=== PATIENT | male | born 1965 | race Caucasian/White ===

== ENCOUNTER 2016-12-11 04:07 | Emergency (ER) | payer OTHER ==
--- NOTE | 2016-12-11 04:54 | EDPHY ---
H & P Stated Complaint: left flank pain HPI/ROS: HPI CHIEF COMPLAINT: Back pain, radiating down left leg HISTORY OF PRESENT ILLNESS: This patient very pleasant 50-year-old male he tells me he has significant past medical history for "being mentally disabled" he presents to the emergency room at 5 o'clock in the morning with complaint of lumbar back pain paravertebral left-sided that radiates down his left gluteus and across the anterior left thigh. It is worse when he walks and has positional changes he denies midline lumbar pain he denies trauma, denies saddle anesthesia, bowel or bladder continence. In fact patient tells me that he thinks he is severely constipated and having trouble having bowel movements. Tells me his stools are hard at times he sees blood in them. Denies fever, chest pain, shortness of breath, vomiting. He tells me sees at time of hard stool bright red blood. The main reason coming into the emergency room this evening is lumbar back pain left-sided paravertebral radiating down his left leg across the left thigh does not go below his knee. Denies fever. Past Medical History: "Mentally disabled" Past Surgical History: denies significant surgical history Social History: lives locally here [place], disabled Family History: noncontributory ROS REVIEW OF SYSTEMS: A comprehensive 10 point review of systems is otherwise negative aside from elements mentioned in the history of present illness. Exam Constitutional appears well, nontoxic no acute distress, triage nursing summary reviewed, vital signs reviewed, awake/alert. Eyes normal conjunctivae and sclera, EOMI, PERRLA. HENT normal inspection, atraumatic, moist mucus membranes, no epistaxis, neck supple/ no meningismus, no raccoon eyes. Respiratory clear to auscultation bilaterally, normal breath sounds, no respiratory distress, no wheezing. Cardiovascular rate normal, regular rhythm, no murmur, no edema, distal pulses normal. Gastrointestinal rectal exam good tone, brown stool, no blood, no palpable mass , no evidence of hemorrhoids, soft, non-tender, no rebound, no guarding, normal bowel sounds, no distension, no pulsatile mass. Genitourinary no CVA tenderness. Musculoskeletal no midline vertebral tenderness, full range of motion, no calf swelling, no tenderness of extremities, no meningismus, good pulses, neurovascularly intact. Skin pink, warm, & dry, no rash, skin atraumatic. Neurologic awake, alert and oriented x 3, AAOx3, moves all 4 extremities equally, motor intact, sensory intact, CN II-XII intact, normal cerebellar, normal vision, normal speech. this patient is good strength of his bilateral lower extremities 5/5 Psychiatric normal mood/affect. Heme/Lymph/Immune no lymphadenopathy. Differential Diagnosis: This includes but is not limited to in a particular order: sciatica, annular tear, compression fracture, nerve root compression, kidney stone, UTI Medical Decision Making: this patient had an x-ray of his lumbar spine to rule compression fracture significant malalignment, will check a urinalysis to make sure he does not have blood in his urine. His rectal exam is unremarkable no blood. Will send Hemoccult blood. Ibuprofen for pain control. Re-evaluation: ED x-ray lumbar spine: no evidence of acute compression fracture. There is scoliosis present. Image interpreted myself. 0604: Re-examination at this time the patient's urinalysis does not show any blood, rectal exam occult blood shows no blood. patient's pain is well controlled ibuprofen most likely sciatica. Lumbar spine x-ray shows no acute compression fracture. I do recommend he takes MiraLax for constipation ibuprofen for pain return to the emergency room if develops any worsening symptoms questions or concerns includes severe back pain, vomiting or fever. Source: Patient - Personal History Current Tetanus Diphtheria and Acellular Pertussis (TDAP): Yes - Medical/Surgical History Hx Asthma: No Hx Chronic Respiratory Disease: No Hx Diabetes: No Hx Cardiac Disease: No Hx Renal Disease: No Hx Cirrhosis: No Hx Alcoholism: No Hx HIV/AIDS: No Hx Splenectomy or Spleen Trauma: No Other PMH: none - Social History Smoking Status: Former smoker Constitutional: Initial Vital Signs Heart Rate 80 12/11/16 04:12 Respiratory Rate 20 12/11/16 04:12 Blood Pressure 142/98 H 12/11/16 04:12 O2 Sat (%) 94 12/11/16 04:12 O2 Delivery Mode Room Air Allergies/Adverse Reactions: amoxicillin [Amoxicillin] Allergy (Verified 05/06/14 19:32) Home Medications: Medication Instructions Recorded oxyCODONE/APAP 5/325 [Percocet 1 - 2 tab PO Q4-6PRN PRN #15 tab 01/23/15 5/325] Hydrocodone/APAP 5/325 [[place] 1 - 2 tab PO Q4-6PRN PRN #10 tab 01/27/16 5/325 (RX)] Ibuprofen [Motrin (*)] 800 mg PO Q6-8PRN #7 tab 12/11/16 Polyethylene Glycol 3350 [Miralax 17 gm PO DAILY #2 pkt 12/11/16 17 gm (*)] Medical Decision Making - Data Points Laboratory Results: 12/11/16 12/11/16 05:10 05:00 Urine Color YELLOW Urine Appearance CLEAR Urine pH 6.0 (5.0-7.5) Ur Specific [place] 1.027 (1.002-1.030) Urine Protein NEGATIVE (NEGATIVE) Urine Ketones TRACE H (NEGATIVE) Urine Blood NEGATIVE (NEGATIVE) Urine Nitrate NEGATIVE (NEGATIVE) Urine Bilirubin NEGATIVE (NEGATIVE) Urine Urobilinogen 2.0 H EU (0.2-1.0) Ur Leukocyte Esterase NEGATIVE (NEGATIVE) Urine Glucose NEGATIVE (NEGATIVE) Stool Occult Bld Scrn NEGATIVE (NEGATIVE) Medications Given: Discontinued Medications Ibuprofen (Motrin) 800 mg PO EDNOW ONE Stop: 12/11/16 05:04 Last Admin: 12/11/16 05:20 Dose: 800 mg Departure - Departure Disposition: Home, Routine, Self-Care Clinical Impression: Sciatica Qualifiers: Laterality: left Qualifier Code: (M54.32) Sciatica, left side Back pain Qualifiers: Back pain location: low back pain Chronicity: acute Back pain laterality: left Sciatica presence: with sciatica Sciatica laterality: sciatica of left side Qualifier Code: (M54.42) Lumbago with sciatica, left side Constipation Qualifiers: Constipation type: slow transit constipation Qualifier Code: (K59.01) Slow transit constipation Condition: Good Instructions: Low Back Strain (ED), Acute Low Back Pain (ED), Lumbar Radiculopathy (ED), Arthralgia (ED), Back Pain (ED), Sciatica (ED), Constipation (ED) Additional Instructions: 1. Return emergency room if develops worsening symptoms questions or concerns. Referrals: NONE *PRIMARY CARE P,. [Primary Care Provider] - As per Instructions Prescriptions: Polyethylene Glycol 3350 [Miralax 17 gm (*)] 17 gm PO DAILY #2 pkt Ibuprofen [Motrin (*)] 800 mg PO Q6-8PRN #7 tab
[2016-12-11] MEDS ORDERED: IBUPROFEN 200 MG TAB PO ONE (05:03)
[2016-12-11 05:25] LABS: COLOR YELLOW; LEUKOCYTE ESTERASE,URINE NEGATIVE (NEGATIVE); NITRITE,URINE NEGATIVE (NEGATIVE)
[2016-12-11 06:24] VITALS: BP 119/93; PULSE 66; RESP 16; TEMP 98.6; O2SAT 95
--- NOTE | 2016-12-11 09:18 | DX ---
Lumbar Spine, 2 views History: Pain Comparison: None Findings: There is a moderate lumbar levoscoliosis centered at L3. There is mild leftward listhesis o f L3 on top of L4 associated with lateral osteophytes. There are marginal anterior disk space osteoph ytes between L3 and L5. Disk spaces maintain normal height. There is degenerative vacuum phenomenon p resent at L5-S1. Mineralization is normal and there are no compression abnormalities. The SI joints l ook normal. Impression: Degenerative lumbar changes described above associated with a scoliosis.
== END 2016-12-11 06:23 | disposition home or self-care (01) ==
DX: M54.42 Lumbago with sciatica, left side (principal); K59.01 Slow transit constipation; Z87.891 Personal history of nicotine dependence

== ENCOUNTER 2016-12-11 10:12 | Emergency (ER) | payer OTHER ==
[2016-12-11 10:18] VITALS: RESP 16; O2SAT 95
--- NOTE | 2016-12-11 12:04 | EDPHY ---
H & P Stated Complaint: l flank pain/seen this morning Time Seen by Provider: 12/11/16 11:56 HPI/ROS: CHIEF COMPLAINT: Flank pain HISTORY OF PRESENT ILLNESS: The patient is a 50 year old male, presenting with left sided low back pain. The patient was evaluated here less than 12 hours ago ; presenting with 2 days of low back pain and bloody stool. Evaluation included occult neg stool and urinalysis with no hematuria. Xrays of lumbar spine unremarkable. He was discharged home with magnesium citrate for constipation. After drinking mag-citrate he had a bowel movement today. He continues to have low back pain. His pain is left sided and radiates into his left anterior thigh. His pain is worse with movement. He had similar low back pain last year that developed after skiing. He denies incontinence. No urinary complaints. No fever, chills, vomiting, diarrhea. No pain with defecation, no history of anal fissure or of hemorrhoids. No bowel or bladder dysfunction, no weakness in legs. REVIEW OF SYSTEMS: Aside from elements discussed in the HPI, a comprehensive 10-point review of systems was reviewed and is negative. PAST MEDICAL HISTORY: C-difficile after antibiotics. SOCIAL HISTORY: Marijuana use. VITAL SIGNS: Reviewed by me GENERAL: Well-developed, well-nourished, resting comfortably in no respiratory distress. HEENT: Atraumatic. Eyes: No icterus, no injection. Mouth: moist mucous membranes. No erythema or lesions. Neck: supple with no adenopathy. LUNGS: Clear to auscultation bilaterally, no wheezes, rhonchi or rales. CARDIAC: Regular rate and rhythm, no rubs, murmurs or gallops. ABDOMEN: Soft, nontender, nondistended, bowel sounds normal. BACK: Pain in lateral left flank, near SI joint, and extending along paraspinal muscles. No pain with internal/external rotation at hip. No midline tendernss to palpation. RECTAL: Brown stool, no melena, no fissues, hemorrhoid. EXTREMITIES: No trauma. No edema. Range of motion is normal throughout. NEURO: Alert and oriented, grossly nonfocal. SKIN: Warm and dry, no rash. PSYCHIATRIC: Normal mentation, no agitation. Portions of this note were transcribed by a medical genetics director. I personally performed a history, physical exam, medical decision making, and confirmed accuracy of information the transcribed note. Source: Patient - Personal History Current Tetanus/Diphtheria Vaccine: Yes - Medical/Surgical History Hx Asthma: No Hx Chronic Respiratory Disease: No Hx Diabetes: No Hx Cardiac Disease: No Hx Renal Disease: No Hx Cirrhosis: No Hx Alcoholism: No Hx HIV/AIDS: No Hx Splenectomy or Spleen Trauma: No Other PMH: none - Social History Smoking Status: Former smoker Constitutional: Initial Vital Signs Temperature (C) 36.4 C 12/11/16 10:14 Heart Rate 83 12/11/16 10:14 Respiratory Rate 16 12/11/16 10:14 Blood Pressure 157/106 H 12/11/16 10:14 O2 Sat (%) 95 12/11/16 10:14 O2 Delivery Mode Room Air Allergies/Adverse Reactions: amoxicillin [Amoxicillin] Allergy (Verified 12/11/16 10:13) Home Medications: Medication Instructions Recorded oxyCODONE/APAP 5/325 [Percocet 1 - 2 tab PO Q4-6PRN PRN #15 tab 01/23/15 5/325] Hydrocodone/APAP 5/325 [[place] 1 - 2 tab PO Q4-6PRN PRN #10 tab 01/27/16 5/325 (RX)] Hydrocodone/APAP 5/325 [[place] 1 tab PO Q6H PRN #10 tab 12/11/16 5/325 (RX)] Ibuprofen [Motrin (*)] 800 mg PO Q6-8PRN #7 tab 12/11/16 Polyethylene Glycol 3350 [Miralax 17 gm PO DAILY #2 pkt 12/11/16 17 gm (*)] methylPREDNISolone [Medrol Dose 4 mg PO DAILY #1 ea 12/11/16 [place]] oxyCODONE IR [Oxycodone Ir (*)] 5 mg PO Q6-8PRN PRN #10 tab 12/11/16 Medical Decision Making - Diagnostics Imaging: Study: CT of the abdomen/pelvis. Indication: Left flank pain. Results: Stenosis of lumbar spine, L3, L4. No diverticulitis. No stone. The study was read by the radiologist, Dr. Collins. I viewed the images myself on the PACS system. ED Course/Re-evaluation: 50 year old see about 12 hours ago in the ED. Presents complaining of ongoing left flank pain. Labs and CT abdomen/pelvis was ordered. Labs largely unremarkable. Urine with no hematuris. CT scan of abdomen demonstrates some constipation, no divertirticulitis, no evidence for kidney stones. Lumbar spinal stenosis noted. 1:45 pm: I discussed findings with the patient. CT shows no obstruction, no stone. He has lumbar stenosis. Feels comfortable being discharged home with plans for pain meds and follow up. Will also be given referral to GI for chronic bloating and pain. Differential Diagnosis: Differential diagnosis of the patient's flank pain was considered including but not limited to musculoskeletal causes, kidney stone, pyelonephritis, shingles, and intra-abdominal causes such as diverticulitis and appendicitis. - Data Points Laboratory Results: Laboratory Results 12/11/16 12:00 12/11/16 12:00 Departure - Departure Disposition: Home, Routine, Self-Care Clinical Impression: Lumbar stenosis, Low back pain Condition: Good Instructions: Acute Low Back Pain (ED) Additional Instructions: Mainstay of therapy is rest, ice, anti-inflammatories, pain medications, and muscle relaxants as much as possible. Apply ice for 20-30 minutes every 2-3 hours for the next 48 hours. After 48 hours, a heating pad or hot tub may feel better. Use ibuprofen 600 mg every 6-8 hours on a regular basis to provide pain relief and anti-inflammatory effects. Okay to use hydrocodone as needed for severe pain. Use Medrol dose pack as prescribed. Followup with the moving consultant as directed. Consider physical therapy or chiropractic followup. Return to the emergency department or seek care urgently if you have worsening pain, pain radiating into the legs, weakness, numbness or tingling, difficulties with bowel or bladder, or other concerns. Referrals: Jackson Shetty DO [Doctor of Osteopathy] - As per Instructions (Primary Care Physician referral) Ela Andrews MD [Medical Doctor] - As per Instructions ( Insurance Premium Auditor) Prescriptions: methylPREDNISolone [Medrol Dose [place]] 4 mg PO DAILY #1 ea Hydrocodone/APAP 5/325 [[place] 5/325 (RX)] 1 tab PO Q6H PRN #10 tab PRN Reason: Pain oxyCODONE IR [Oxycodone Ir (*)] 5 mg PO Q6-8PRN PRN #10 tab PRN Reason: pain Report Scribed for: Philly Carranza Report Scribed by: Fang Alvarado Date of Report: 12/11/16 Time of Report: 12:04
[2016-12-11 12:36] LABS: % IMMATURE GRANULYOCYTES 0.3 % (0.0-1.1); ABSOLUTE IMMATURE GRANULOCYTES 0.02 10^3/uL (0.00-0.10); ADD DIFF? NO; ADD MORPH? NO; ADD SCAN? NO; ATYPICAL LYMPHOCYTE FLAG 10 (0-99); FRAGMENT RBC FLAG 0 (0-99); HEMATOCRIT 47.6 % (40.0-51.0); HEMOGLOBIN 16.9 g/dL (13.7-17.5); LEFT SHIFT FLG 0 (0-99); LIPEMIA HEMOLYSIS FLAG 90 (0-99); MEAN CELL HEMOGLOBIN 31.2 pg (27.9-34.1); MEAN CELL HEMOGLOBIN CONCENTR. 35.5 g/dL (32.4-36.7); MEAN CELL VOLUME 87.8 fL (81.5-99.8); MEAN PLATELET VOLUME 10.1 fL (8.7-11.7); PLATELET CLUMPS FLAG 0 (0-99); PLATELET COUNT 223 10^3/uL (150-400); RED BLOOD CELL COUNT 5.42 10^6/uL (4.40-6.38); RED CELL DISTRIBUTION WIDTH 12.3 % (11.5-15.2)
[2016-12-11] MEDS ORDERED: IOPAMIDOL (ISOVUE-300) 100 ML BTL IV ONE (12:39)
[2016-12-11 12:59] LABS: CALCIUM 9.7 mg/dL (8.5-10.4); POTASSIUM 4.8 mEq/L (3.5-5.2); SODIUM 139 mEq/L (134-144)
[2016-12-11 13:32] LABS: ANION GAP 13 mEq/L (8-16); CARBON DIOXIDE 23 mEq/l (22-31); CHLORIDE 103 mEq/L (97-110); CREATININE 1.2 mg/dL (0.7-1.3); GLOMERULAR FILTRATION RATE > 60; GLUCOSE 93 mg/dL (70-100)
--- NOTE | 2016-12-11 13:35 | CT ---
CT Scan of the Abdomen and Pelvis (With Contrast) at 1254 hours History: Left flank pain. Technique: Axial computed tomographic images of the abdomen and pelvis were obtained with the unevent ful intravenous administration of 90 mL Isovue-300 contrast. No oral or rectal contrast, which limits the study. Dose reduction techniques were utilized. CT Abdomen Findings: Lung bases: Normal. Liver: Normal. Biliary system: No obstruction. Spleen: 1 cm probable benign splenic cyst on image 26 of series 3.. Pancreas: Normal. Adrenals: Normal. Kidneys: No obstruction or solid masses.. Abdominal Aorta: No aneurysm. No bowel obstruction, ascites, or significant retroperitoneal lymphadenopathy. CT Pelvis Findings: No evidence of diverticulitis. Prostate measures 5 x 4 cm with some calcification s. No evidence of appendicitis. No inflammatory changes involving the colon. A few sigmoid diverticul a without diverticulitis. No bowel obstruction. [id number] degenerative disk disease in the lumbar spine with disk bulge and facet arthropathy, most prominent at L3-L4, resulting in moderate stenosis at L3-L4 and [id number] bilateral neur al foraminal stenosis. Impression: 1. L3-L4: Moderate central canal stenosis and [id number] bilateral neural foraminal stenosis, s econdary to degenerative disk disease with disk bulge and facet arthropathy. 2. No CT evidence of appendicitis, abscess or bowel obstruction. 3. A few sigmoid diverticula without diverticulitis, colitis or bowel obstruction. 4. Probable benign splenic cyst measuring 1 cm. 5. No evidence for urinary tract obstruction, aortic aneurysm, or significant adenopathy. Findings and recommendations discussed with Emergency Department physician, Dr. Philly Carranza at 1320 hours today. Final report concurs with initial preliminary interpretation.
[2016-12-11 13:39] VITALS: BP 142/72; PULSE 85; TEMP 98.4
== END 2016-12-11 15:00 | disposition home or self-care (01) ==
DX: M48.06 Spinal stenosis, lumbar region (principal); Z87.891 Personal history of nicotine dependence
CPT/HCPCS: 74177; 99285; Q9967; 82947-QW

== ENCOUNTER 2016-12-16 07:11 | Emergency (ER) | payer OTHER ==
[2016-12-16 07:19] VITALS: RESP 16; TEMP 97.9
--- NOTE | 2016-12-16 07:31 | EDPHY ---
H & P Stated Complaint: low back pain, not enough meds . seen in ED for same on 12/11 Time Seen by Provider: 12/16/16 07:30 HPI/ROS: CHIEF COMPLAINT: Low back pain. HISTORY OF PRESENT ILLNESS: This patient is a 50 year old man presenting with ongoing low back pain, duration of approximately one week. The pain is aggravated by getting up after sitting or laying for a long period of time. It is moderate in severity. He has taken a Medrol dose pack, ibuprofen, and hydrocodone for pain relief. He received mild alleviation from the ibuprofen. Last took ibuprofen, 800mg, at 5am (3 hours ago). He denies radiation of pain or leg paresthesia. Denies bowel or bladder incontinence. Denies trauma or injury. He denies any acute change in the back pain, main complaint is difficulty managing the pain. The patient was seen for this complaint 12/11/16 in the ED. He also reported blood stools at that time. The patient attempted to schedule a colonoscopy after that visit, but was told he was not able to schedule it until he was 51 years old. Primary reason for todays presentation is ongoing discomfort. Requesting more meds and referral to orthopedics REVIEW OF SYSTEMS: Aside from elements discussed in the HPI, a comprehensive 10-point review of systems was reviewed and is negative, with exception of difficulty staying asleep at night. PAST MEDICAL HISTORY: C-difficile after antibiotics SOCIAL HISTORY: Marijuana use. VITAL SIGNS: Reviewed by me GENERAL: Well-developed, well-nourished, resting comfortably in no respiratory distress. HEENT: Atraumatic. Eyes: No icterus, no injection. Mouth: moist mucous membranes. No erythema or lesions. Neck: supple with no adenopathy. LUNGS: Clear to auscultation bilaterally, no wheezes, rhonchi or rales. CARDIAC: Regular rate and rhythm, no rubs, murmurs or gallops. ABDOMEN: Soft, nontender, nondistended, bowel sounds normal. BACK: Mild tenderness to the low back, on the level of L4-L5. No CVA tenderness. EXTREMITIES: No trauma. No edema. Range of motion is normal throughout. NEURO: Alert and oriented, Straight leg raise test is negative bilaterally. Hip flexion, knee extension, knee flexion, dorsiflexion and plantar flexion are 5/ 5 bilaterally. EHL 5 over 5. Sensation is intact to light touch throughout. 1+ ankle jerk bilaterally. Absent patellar reflexes bilaterally. SKIN: Warm and dry, no rash. PSYCHIATRIC: Normal mentation, no agitation. Portions of this note were transcribed by a biomedical engineering technician. I personally performed a history, physical exam, medical decision making, and confirmed accuracy of information the transcribed note. Source: Patient Exam Limitations: No limitations - Personal History Current Tetanus/Diphtheria Vaccine: Unsure Current Tetanus Diphtheria and Acellular Pertussis (TDAP): Unsure - Medical/Surgical History Hx Asthma: No Hx Chronic Respiratory Disease: No Hx Diabetes: No Hx Cardiac Disease: No Hx Renal Disease: No Hx Cirrhosis: No Hx Alcoholism: No Hx HIV/AIDS: No Hx Splenectomy or Spleen Trauma: No Other PMH: none - Social History Smoking Status: Former smoker Constitutional: Initial Vital Signs Temperature (C) 36.6 C 12/16/16 07:16 Heart Rate 76 12/16/16 07:16 Respiratory Rate 16 12/16/16 07:16 Blood Pressure 138/95 H 12/16/16 07:16 O2 Sat (%) 95 12/16/16 07:16 O2 Delivery Mode Room Air Allergies/Adverse Reactions: amoxicillin [Amoxicillin] Allergy (Verified 12/16/16 07:20) Home Medications: Medication Instructions Recorded oxyCODONE/APAP 5/325 [Percocet 1 - 2 tab PO Q4-6PRN PRN #15 tab 01/23/15 5/325] Ibuprofen [Motrin (*)] 800 mg PO Q6-8PRN #7 tab 12/11/16 Polyethylene Glycol 3350 [Miralax 17 gm PO DAILY #2 pkt 12/11/16 17 gm (*)] methylPREDNISolone [Medrol Dose 4 mg PO DAILY #1 ea 12/11/16 [place]] oxyCODONE IR [Oxycodone Ir (*)] 5 mg PO Q6-8PRN PRN #10 tab 12/11/16 Cyclobenzaprine [Flexeril 10 MG 10 mg PO TID PRN #20 tab 12/16/16 (RX)] Lorazepam [Ativan] 1 mg PO HS PRN #8 tablet 12/16/16 oxyCODONE IR [Oxycodone Ir (*)] 10 mg PO QID PRN #20 tab 12/16/16 Medical Decision Making ED Course/Re-evaluation: This patient was seen in the ED 12/11/16 for the same complaints. Previous visit reviewed. The patient has diminished patellar reflexes bilaterally, but 1+ ankle jerk and 5/5 EHL strength bilaterally. Normal motor and sensation in lower extremities. I have referred the patient to orthopedic surgery for further evaluation of back pain. Also referred the patient to gastroenterology for previous complaint of bloody stools. Will prescribe OxyIR for pain relief. NO further narcotics from ED. multimedia project manager to assist patient in scheduling outpatient appts. Differential Diagnosis: Diff dx for patient back pain considered including but not limited to musculoskeletal pain, djd, ddd, cauda equina, epidural abscess, epidural hematoma, lumbar myositis, diskitis, urinary tract infection, kidney stone. Departure - Departure Disposition: Home, Routine, Self-Care Clinical Impression: Low back pain Qualifiers: Qualifier Code: (M54.5) Low back pain Condition: Good Instructions: Acute Low Back Pain (ED), Back Pain (ED) Additional Instructions: Our child support case officer will call you to assist with scheduling gastroenterology appointment and physical therapy resources. Schedule appointment with gastroenterology and orthopedic surgery. Continue to take a non-steroidal anti-inflammatory as directed. Take OxyIR as prescribed for severe pain and Flexeril for muscle relaxant. I recommend Ibuprofen (Motrin,Advil) or Naproxen Sodium (Aleve) for pain and anti-inflammatory effects. You may take either one, but do not take both. Your dose is: Ibuprofen 600mg every 6-8 hours with food. OR Naproxen Sodium (Aleve) 220mg every 12 hours. You can take the Ativan, as prescribed, for sleep aid as needed. Return to the emergency department for severe pain, fever, numbness, difficulty walking, change in location or nature of pain or other concerns. Referrals: Antonio Frost MD [Medical Doctor] - As per Instructions (Orthopedic surgeon) Gastroenterology [facility] [Provider Group] - As per Instructions Prescriptions: Lorazepam [Ativan] 1 mg PO HS PRN #8 tablet PRN Reason: insomnia Cyclobenzaprine [Flexeril 10 MG (RX)] 10 mg PO TID PRN #20 tab PRN Reason: Muscle Spasms oxyCODONE IR [Oxycodone Ir (*)] 10 mg PO QID PRN #20 tab PRN Reason: Pain Report Scribed for: Philly Carranza Report Scribed by: Merna Matthews Date of Report: 12/16/16 Time of Report: 07:31
[2016-12-16 09:04] VITALS: BP 146/91; PULSE 66; O2SAT 93
== END 2016-12-16 09:03 | disposition home or self-care (01) ==
DX: M54.5 Low back pain (principal)

== ENCOUNTER 2018-05-07 12:07 | Emergency (ER) | payer OTHER ==
--- NOTE | 2018-05-07 15:21 | EDPHY ---
H & P Time Seen by Provider: 05/07/18 15:18 HPI/ROS: CHIEF COMPLAINT: Skin infection HISTORY OF PRESENT ILLNESS: Patient is a 52-year-old male with no significant past medical history here with concern for multiple spider bites to the leg and arms. States that the initial skin lesion was noted to his right thigh 2 days ago. He then noticed a 2nd lesion to the right thigh later that day and then today has noticed 2 lesions to his right arm requiring 1 to the extensor aspect of the right hand. He has noticed no fever, nausea, chills, joint swelling, pain with range of motion of the knees or wrist or elbow. He states he did have contact with somebody with a MRSA infection around 3 or 4 days ago. Has no personal history of MRSA infection. He is not immunocompromised. He does not smoke or do any drugs. Denies any medication allergies. REVIEW OF SYSTEMS: Constitutional: No fever, no chills. Eyes: No discharge. ENT: No sore throat. Cardiovascular: No chest pain, no palpitations. Respiratory: No cough, no shortness of breath. Gastrointestinal: No abdominal pain, no vomiting. Genitourinary: No hematuria. Musculoskeletal: No back pain. Skin: No rashes. Neurological: No headache. Smoking Status: Current some day smoker Physical Exam: General Appearance: Alert and no distress. Eyes: Pupils equal and round no injection. Respiratory: Chest is nontender, lungs are clear to auscultation. Cardiac: regular rate and rhythm. Gastrointestinal: Abdomen is soft and nontender, no masses, bowel sounds normal. Musculoskeletal: Neck is supple and nontender. Extremities have full range of motion and are nontender. Skin: To the right thigh there are 2 regions of erythema and induration with central area of draining fluctuance or without any streaking or crepitus. To the right upper extremity there is a 2 way to region of erythema and tenderness drainage to the dorsum of the right hand with slight streaking to the mid mid extensor forearm. No pain with range of motion of the fingers or tenderness over the palmar forearm. Constitutional: Initial Vital Signs Temperature (C) 36.9 C 05/07/18 12:15 Heart Rate 90 05/07/18 12:15 Respiratory Rate 16 05/07/18 12:15 Blood Pressure 118/97 H 05/07/18 12:15 O2 Sat (%) 96 05/07/18 12:15 O2 Delivery Mode Room Air Allergies/Adverse Reactions: amoxicillin [Amoxicillin] Allergy (Verified 05/07/18 12:14) Home Medications: Medication Instructions Recorded Mupirocin 2% [Bactroban 2%] 15 gm TP BID 10 Days #1 oint 05/07/18 Sulfamethox/Tmp 800/160 mg 1 tab PO BID #20 tab 05/07/18 [Bactrim Ds] Medical Decision Making ED Course/Re-evaluation: Patient given 1st dose Bactrim here in ER Differential Diagnosis: Sepsis, bacteremia, abscess, necrotizing fasciitis, MRSA, cellulitis - Data Points Medications Given: Discontinued Medications Trimethoprim/Sulfamethoxazole (Bactrim Ds) 1 ea PO EDNOW ONE PRN Reason: Protocol Stop: 05/07/18 15:23 Last Admin: 05/07/18 15:33 Dose: 1 ea Departure - Departure Disposition: Home, Routine, Self-Care Clinical Impression: Spider bite, Cellulitis and abscess of left leg, Cellulitis Condition: Good Instructions: MRSA (Methicillin-Resistant Staphylococcus Aureus) (ED), Cellulitis (ED) Additional Instructions: Follow-up in 24 hr with her primary care doctor or here for wound check. If he feel worse in any way including progression of the infection return sooner for re-evaluation. Referrals: NONE *PRIMARY CARE P,. [Primary Care Provider] - As per Instructions Prescriptions: Mupirocin 2% [Bactroban 2%] 15 gm TP BID 10 Days #1 oint Sulfamethox/Tmp 800/160 mg [Bactrim Ds] 1 tab PO BID #20 tab
[2018-05-07] MEDS ORDERED: SULFAMETHOX/TMP 800/160 MG 1 TAB PO ONE (15:22)
[2018-05-07 15:46] VITALS: BP 136/85
== END 2018-05-07 15:43 | disposition home or self-care (01) ==
DX: T63.301A Toxic effect of unspecified spider venom, accidental (unintentional), initial encounter (principal); F17.200 Nicotine dependence, unspecified, uncomplicated

== ENCOUNTER 2018-05-26 17:51 | Emergency (ER) | payer OTHER ==
[2018-05-26] MEDS ORDERED: LIDOCAINE 4%/MENTHOL 1% PATCH TD ONE (18:30)
--- NOTE | 2018-05-26 18:35 | EDPHY ---
H & P Smoking Status: Current some day smoker Time Seen by Provider: 05/26/18 18:03 HPI/ROS: CHIEF COMPLAINT: Left flank pain HISTORY OF PRESENT ILLNESS: Patient is a 52-year-old male here with chief complaint of off and on the left flank pain for over 3 years. Review of his chart shows he was seen the end of 2016 and beginning of 2017 for the same complaint. At that time he had CT scan done which revealed no acute process of the abdomen or lumbar spine. Denies any incontinence of stool or urine any fever. He does report intermittent blood in his stool and blood on the toilet paper when he wipes. He has never had a colonoscopy. At his last visit he was referred to Gastroenterology by reports he called and was unable to schedule. He has no history of Crohn's or ulcerative colitis. Has no known history of hemorrhoids. He has had no diarrhea. The last CT scan did no diverticula without diverticulitis. REVIEW OF SYSTEMS: Constitutional: No fever, no chills. Eyes: No discharge. ENT: No sore throat. Cardiovascular: No chest pain, no palpitations. Respiratory: No cough, no shortness of breath. Gastrointestinal: No abdominal pain, no vomiting. Genitourinary: No hematuria. Musculoskeletal: + back pain. Skin: No rashes. Neurological: No headache. (Tejinder Childs) Physical Exam: General Appearance: Alert and no distress. Eyes: Pupils equal and round no injection. Respiratory: Chest is nontender, lungs are clear to auscultation. Cardiac: regular rate and rhythm. Gastrointestinal: Abdomen is soft and nontender, no masses, bowel sounds normal. Musculoskeletal: Neck is supple and nontender. Extremities have full range of motion and are nontender. Skin: No rashes or lesions. Rectal exam reveals no hemorrhoids and stool color is light brown without any bright red blood seen (Tejinder Childs) Constitutional: Initial Vital Signs Temperature (C) 36.5 C 05/26/18 17:56 Heart Rate 75 05/26/18 17:56 Respiratory Rate 16 05/26/18 17:56 Blood Pressure 124/77 H 05/26/18 17:56 O2 Sat (%) 94 05/26/18 17:56 O2 Delivery Mode Room Air Allergies/Adverse Reactions: amoxicillin [Amoxicillin] Allergy (Verified 05/26/18 18:01) Home Medications: Medication Instructions Recorded Lidocaine [Lidoderm] 700 mg TP DAILY #1 box 05/26/18 Medical Decision Making Other Provider: PHYSICIAN DOCUMENTATION: The patient was evaluated and managed by the Physician Baseball Coach. My co- signature indicates that I have reviewed this chart and I agree with the findings and plan of care as documented. I am the secondary supervising physician. (Max Burns) - Data Points Laboratory Results: Laboratory Results 05/26/18 18:20 05/26/18 18:20 05/26/18 05/26/18 05/26/18 18:20 18:20 18:20 WBC RBC Hgb Hct MCV MCH MCHC RDW Plt Count MPV Neut % (Auto) Lymph % (Auto) Divide % (Auto) Eos % (Auto) Baso % (Auto) Nucleat RBC Rel Count Absolute Neuts (auto) Absolute Lymphs (auto) Absolute Monos (auto) Absolute Eos (auto) Absolute Basos (auto) Absolute Nucleated RBC Immature Gran % Immature Gran # Sodium 137 mEq/L mEq/L (135-145) Potassium 4.8 mEq/L mEq/L (3.3-5.0) Chloride 104 mEq/L mEq/L (97-110) Carbon Dioxide 22 mEq/l mEq/l (22-31) Anion Gap 11 mEq/L mEq/L (8-16) BUN 20 mg/dL mg/dL (7-23) Creatinine 1.1 mg/dL mg/dL (0.7-1.3) Estimated GFR > 60 Glucose 94 mg/dL mg/dL (70-100) Calcium 9.5 mg/dL mg/dL (8.5-10.4) Total Bilirubin 0.9 mg/dL mg/dL (0.1-1.4) AST 27 IU/L IU/L (17-59) ALT 49 IU/L IU/L (21-72) Alkaline Phosphatase 50 IU/L IU/L (38-126) Total Protein 7.2 g/dL g/dL (6.3-8.2) Albumin 4.3 g/dL g/dL (3.5-5.0) Urine Color YELLOW Urine Appearance CLEAR Urine pH 5.0 (5.0-7.5) Ur Specific [place] 1.023 (1.002-1.030) Urine Protein NEGATIVE (NEGATIVE) Urine Ketones NEGATIVE (NEGATIVE) Urine Blood NEGATIVE (NEGATIVE) Urine Nitrate NEGATIVE (NEGATIVE) Urine Bilirubin NEGATIVE (NEGATIVE) Urine Urobilinogen NEGATIVE EU EU (0.2-1.0) Ur Leukocyte Esterase NEGATIVE (NEGATIVE) Urine Glucose NEGATIVE (NEGATIVE) Stool Occult Bld Scrn POSITIVE H (NEGATIVE) 05/26/18 18:20 WBC 6.62 10^3/uL 10^3/uL (3.80-9.50) RBC 4.77 10^6/uL 10^6/uL (4.40-6.38) Hgb 14.7 g/dL g/dL (13.7-17.5) Hct 42.6 % % (40.0-51.0) MCV 89.3 fL fL (81.5-99.8) MCH 30.8 pg pg (27.9-34.1) MCHC 34.5 g/dL g/dL (32.4-36.7) RDW 12.5 % % (11.5-15.2) Plt Count 212 10^3/uL 10^3/uL (150-400) MPV 10.1 fL fL (8.7-11.7) Neut % (Auto) 45.4 % % (39.3-74.2) Lymph % (Auto) 40.8 % % (15.0-45.0) Divide % (Auto) 7.4 % % (4.5-13.0) Eos % (Auto) 5.3 % % (0.6-7.6) Baso % (Auto) 0.9 % % (0.3-1.7) Nucleat RBC Rel Count 0.0 % % (0.0-0.2) Absolute Neuts (auto) 3.01 10^3/uL 10^3/uL (1.70-6.50) Absolute Lymphs (auto) 2.70 10^3/uL 10^3/uL (1.00-3.00) Absolute Monos (auto) 0.49 10^3/uL 10^3/uL (0.30-0.80) Absolute Eos (auto) 0.35 10^3/uL 10^3/uL (0.03-0.40) Absolute Basos (auto) 0.06 10^3/uL 10^3/uL (0.02-0.10) Absolute Nucleated RBC 0.00 10^3/uL 10^3/uL (0-0.01) Immature Gran % 0.2 % % (0.0-1.1) Immature Gran # 0.01 10^3/uL 10^3/uL (0.00-0.10) Sodium Potassium Chloride Carbon Dioxide Anion Gap BUN Creatinine Estimated GFR Glucose Calcium Total Bilirubin AST ALT Alkaline Phosphatase Total Protein Albumin Urine Color Urine Appearance Urine pH Ur Specific [place] Urine Protein Urine Ketones Urine Blood Urine Nitrate Urine Bilirubin Urine Urobilinogen Ur Leukocyte Esterase Urine Glucose Stool Occult Bld Scrn Medications Given: Discontinued Medications Miscellaneous Medication (Icy Hot Lidocaine/Menthol 4%/1% Patch) 1 patch TD EDNOW ONE Stop: 05/26/18 18:31 Last Admin: 05/26/18 18:56 Dose: 1 patch Departure - Departure Disposition: Home, Routine, Self-Care Clinical Impression: Blood in stool, tita, Low back pain Condition: Good Instructions: Low Back Strain (ED), Melena (ED) Additional Instructions: I am providing with 2 numbers today. One is for a primary care physician in the others for Gastroenterology. Please call both numbers tomorrow morning to establish care. Call gastroenterology and states that you're seen emergency room were told to have a colonoscopy done this week. Return to the ER if you of persistent blood in her stool, weakness, shortness of breath or any other worsening or worrisome symptoms. Additionally contact the primary care physician listed here to establish care to address other symptoms including your chronic low back pain. Referrals: NONE *PRIMARY CARE P,. [Primary Care Provider] - As per Instructions Destiny Willis MD [Medical Doctor] - As per Instructions Clari Bryant MD [[facility] Primary Care Provider] - As per Instructions Prescriptions: Lidocaine [Lidoderm] 700 mg TP DAILY #1 box
[2018-05-26 18:37] LABS: PLATELET COUNT 212 10^3/uL (150-400)
[2018-05-26 20:23] VITALS: BP 130/74
[2018-05-26] MEDS ORDERED: PATCH REMOVAL 1 EA PATCH TD SCH (21:00)
== END 2018-05-26 20:23 | disposition home or self-care (01) ==
DX: K92.1 Melena (principal); F17.200 Nicotine dependence, unspecified, uncomplicated

== ENCOUNTER 2019-01-09 15:35 | Emergency (ER) | payer OTHER ==
--- NOTE | 2019-01-09 16:28 | EDPHY ---
H & P Stated Complaint: blood in stool, L flank pain Time Seen by Provider: 01/09/19 16:00 HPI/ROS: HPI The patient presents with bloody stools which have been present for the last 3 weeks in association with left-sided flank pain. The patient has had multiple similar episodes over the last several years with no clear diagnosis. He says he has about 10 bowel movements a day which are small, sometimes with dark red blood, sometimes with small clots of blood, sometimes dripping bright red blood. He sometimes has to strain to have a bowel movement. He has been drinking beer because he notes that this helps him to have more bowel movements. His bowel movements are not painful. He does not have any nausea or vomiting. With this he has intermittent aching left-sided flank pain which has been present for the last 3 weeks. He does not have any hematuria, dysuria. He was referred for a colonoscopy though has not followed up on this because of some difficulties obtaining the test. REVIEW OF SYSTEMS 10 systems were reviewed and negative with the exception of the elements mentioned in the history of present illness. PMHx: Intermittent rectal bleeding of uncertain origin, takes N acetylcysteine for his general health Soc Hx: Prior cigarette smoker, housed PHYSICAL General Appearance: Alert, no distress Eyes: Pupils equal and round no pallor or injection ENT, Mouth: Mucous membranes moist Respiratory: There are no retractions, lungs are clear to auscultation Cardiovascular: Regular rate and rhythm Gastrointestinal: Abdomen is soft and non-tender, no masses, bowel sounds normal Back: There is left-sided flank tenderness with no midline tenderness of his thoracic or lumbar spine Rectal: External hemorrhoids are palpated, there is no active bleeding, there is no stool in the rectal vault or other masses palpated Neurological: A&O, moves all extremities Skin: Warm and dry, no rashes Musculoskeletal: Neck is supple non tender Extremities: symmetrical, full range of motion Psychiatric: Patient is oriented X 3, there is no agitation Source: Patient Exam Limitations: No limitations - Personal History Current Tetanus/Diphtheria Vaccine: Unsure Current Tetanus Diphtheria and Acellular Pertussis (TDAP): Unsure - Medical/Surgical History Hx Asthma: No Hx Chronic Respiratory Disease: No Hx Diabetes: No Hx Cardiac Disease: No Hx Renal Disease: No Hx Cirrhosis: No Hx Alcoholism: No Hx HIV/AIDS: No Hx Splenectomy or Spleen Trauma: No Other PMH: rectal bleeding - Social History Smoking Status: Former smoker Constitutional: Initial Vital Signs Temperature (C) 37.2 C 01/09/19 15:42 Heart Rate 84 01/09/19 15:42 Respiratory Rate 16 01/09/19 15:42 Blood Pressure 169/120 H 01/09/19 15:42 O2 Sat (%) 96 01/09/19 15:42 O2 Delivery Mode Room Air Allergies/Adverse Reactions: amoxicillin [Amoxicillin] Allergy (Verified 01/09/19 15:41) Home Medications: Medication Instructions Recorded methylPREDNISolone [Medrol Dose 4 mg PO DAILY 6 Days ea 01/09/19 [place]] Medical Decision Making - Diagnostics Imaging Results: Imaging Impressions Abdomen CT 01/09/19 16:18 Impression: 1. There is no evidence of nephrolithiasis or obstructive uropathy. 2. Questionable mild asymmetric wall thickening along the left lateral margin of the urinary bladder. In this patient with hematuria, cystoscopy is suggested. 3. Mild sigmoid colon diverticulosis, without active diverticulitis. Given the patient's history of bloody stools, colonoscopy may be of benefit in further evaluation. 4. Prostatomegaly. 5. Stable tiny right hepatic lobe hypodensity and lower pole splenic cyst, compared to November 2016. Findings were discussed with Joy Marsh MD at 18:01, on 01/09/2019. Differential Diagnosis: 53-year-old man with intermittent episodes of frequent bloody stools and left- sided flank pain. This episode has lasted for about 3 weeks. The patient does not have a primary care doctor and has never been seen by a mechanical lead, though this issue has been present for the last several years. Patient does not have any family history of IBD. Differential diagnosis includes diverticulosis, colon mass, colitis. In the emergency department, patient had no ongoing bloody stools. Rectal exam did demonstrate external hemorrhoids, non thrombosed and not bleeding. Labs were checked and were unremarkable. Patient underwent CT scan of abdomen pelvis which did not elucidate the cause of his bloody stools. I suspect his flank pain is musculoskeletal. He has improved in the past with a Medrol Dosepak, thus I will issue this to him per his request. He will need follow-up with GI for his rectal bleeding and I have referred him to the mechanical lead on-call. I have also referred him to the primary care doctor on-call as he does not have primary care. I have placed a note for case management because the patient has had a hard time arranging for follow-up appointments. - Data Points Laboratory Results: Laboratory Results 01/09/19 16:42 01/09/19 16:42 01/09/19 01/09/19 01/09/19 16:42 16:42 15:45 WBC 6.69 10^3/uL 10^3/uL (3.80-9.50) RBC 5.34 10^6/uL 10^6/uL (4.40-6.38) Hgb 16.9 g/dL g/dL (13.7-17.5) Hct 47.1 % % (40.0-51.0) MCV 88.2 fL fL (81.5-99.8) MCH 31.6 pg pg (27.9-34.1) MCHC 35.9 g/dL g/dL (32.4-36.7) RDW 12.0 % % (11.5-15.2) Plt Count 250 10^3/uL 10^3/uL (150-400) MPV 10.1 fL fL (8.7-11.7) Neut % (Auto) 56.3 % % (39.3-74.2) Lymph % (Auto) 34.5 % % (15.0-45.0) [place] % (Auto) 6.7 % % (4.5-13.0) Eos % (Auto) 1.8 % % (0.6-7.6) Baso % (Auto) 0.6 % % (0.3-1.7) Nucleat RBC Rel Count 0.0 % % (0.0-0.2) Absolute Neuts (auto) 3.76 10^3/uL 10^3/uL (1.70-6.50) Absolute Lymphs (auto) 2.31 10^3/uL 10^3/uL (1.00-3.00) Absolute Monos (auto) 0.45 10^3/uL 10^3/uL (0.30-0.80) Absolute Eos (auto) 0.12 10^3/uL 10^3/uL (0.03-0.40) Absolute Basos (auto) 0.04 10^3/uL 10^3/uL (0.02-0.10) Absolute Nucleated RBC 0.00 10^3/uL 10^3/uL (0-0.01) Immature Gran % 0.1 % % (0.0-1.1) Immature Gran # 0.01 10^3/uL 10^3/uL (0.00-0.10) Sodium 138 mEq/L mEq/L (135-145) Potassium 4.2 mEq/L mEq/L (3.5-5.2) Chloride 104 mEq/L mEq/L (97-110) Carbon Dioxide 23 mEq/l mEq/l (22-31) Anion Gap 11 mEq/L mEq/L (6-14) BUN 15 mg/dL mg/dL (7-23) Creatinine 1.0 mg/dL mg/dL (0.7-1.3) Estimated GFR > 60 Glucose 99 mg/dL mg/dL (70-100) Calcium 9.7 mg/dL mg/dL (8.5-10.4) Total Bilirubin 0.9 mg/dL mg/dL (0.1-1.4) AST 29 IU/L IU/L (17-59) ALT 54 IU/L IU/L (21-72) Alkaline Phosphatase 60 IU/L IU/L (38-126) Total Protein 7.8 g/dL g/dL (6.3-8.2) Albumin 4.8 g/dL g/dL (3.5-5.0) Urine Color YELLOW Urine Appearance CLEAR Urine pH 5.0 (5.0-7.5) Ur Specific [place] 1.023 (1.002-1.030) Urine Protein NEGATIVE (NEGATIVE) Urine Ketones NEGATIVE (NEGATIVE) Urine Blood NEGATIVE (NEGATIVE) Urine Nitrate NEGATIVE (NEGATIVE) Urine Bilirubin NEGATIVE (NEGATIVE) Urine Urobilinogen NEGATIVE EU EU (0.2-1.0) Ur Leukocyte Esterase NEGATIVE (NEGATIVE) Urine Glucose NEGATIVE (NEGATIVE) Departure - Departure Disposition: Home, Routine, Self-Care Clinical Impression: Bright red blood per rectum, Left flank pain Condition: Good Instructions: Rectal Bleeding (ED) Additional Instructions: Please return to the emergency department if your worse in any way. I recommend that you follow up with both a primary care physician and a mechanical lead. I have listed their phone numbers below. I have put in a note for our egg caser to call you if you need help making these appointments. Referrals: Andrew Fuentes MD [Medical Doctor] - As per Instructions Giles,Dominique Mckinney MD [Medical Doctor] - As per Instructions Prescriptions: methylPREDNISolone [Medrol Dose [place]] 4 mg PO DAILY 6 Days ea
[2019-01-09 17:01] LABS: PLATELET COUNT 250 10^3/uL (150-400)
[2019-01-09] MEDS ORDERED: IOPAMIDOL (ISOVUE-300) 100 ML BTL ONE (17:22)
[2019-01-09 18:39] VITALS: BP 142/96
--- NOTE | 2019-01-10 16:58 | ASMTCMCOM ---
CM Note CM Note Notes: Pt was seen in the ED yesterday afternoon/evening. CM received a request from the ED Provider to follow-up w/pt and try to ensure pt schedules follow-up appts. CM called pt's provided # ([phone]) but there was no answer and the pt has not set up his voicemail box yet. Pt was referred to [facility] ([phone], fax:[phone]). CM called [facility] and they state pt had an appt back in Dec 2016 but cancelled it. CM faxed over the ED Report and referral to [facility] and requested they try to reach out to pt and schedule a follow-up appt. Pt was also referred to the on-call primary care provider that was listed on Person [facility], Dr Andrew Fuentes, but the discharge referral contact information in [employer] for Dr Fuentes is incorrect and the phone # is disconnected. CM called [facility] ([phone]), where Dr Keren Fuentes is now practicing; spoke w/the secretary receptionist and they state that Dr Fuentes was not on-call yesterday and that it was Dr Uma Rincon who was on-call. Per chart review, pt has been referred to [facility] in the past. CM called [facility] and spoke w/Jer who said pt's last appt was an intake appt in 2016. CM requested [facility] to reach out to the pt and try to get him in for a follow-up appt. Jer states they will try to contact the pt and are able to view pt's ED visit through [employer] so CM does not need to fax over the report, etc. CM available for further assistance if needed. Date Signed: 01/10/2019 04:57 PM Electronically Signed By:Octavia Kidd RN
== END 2019-01-09 18:41 | disposition home or self-care (01) ==
DX: K62.5 Hemorrhage of anus and rectum (principal); R10.9 Unspecified abdominal pain
CPT/HCPCS: 74177; 99285; Q9967